=== PATIENT | female | born 1975 ===

== ENCOUNTER 2024-07-07 09:03 | Inpatient (IN) | payer OTHER ==
[2024-07-07] VITALS (42 sets, daily range): BP systolic 84–134; BP diastolic 61–88
[~2024-07-07] VITALS: Ht 162.6 cm; Wt 64.5 kg
[~2024-07-07 09:03] MED LIST: ARMOUR THYROID90 M1 PO; CeFAZolin Sodium 2,000 MG in NS 100 ML IV SCH; Lactated Ringer's 1,000 ML IV SCH
--- NOTE | 2024-07-07 09:42 | NUR ---
Ambulatory in Day Surgery History, Chart, Medications and Allergies reviewed before start of procedure. Pre-Op teaching done. Pt verbalizes understanding. Patient States Post-Procedure ride home has been arranged.
[2024-07-07] MEDS ORDERED: Midazolam HCl 1MG / ML 2ML Vial ONE (09:53)
[2024-07-07] MEDS ORDERED: Midazolam HCl 1MG / ML 2ML Vial IV SCH (09:55)
[2024-07-07] MEDS ORDERED: Bupivacaine 0.5% HCl 5 MG/ML 30MLVIAL ONE (10:28)
[2024-07-07] MEDS ORDERED: Ondansetron HCl 2 MG / ML 2ML Vial ONE (11:48)
[2024-07-07] MEDS ORDERED: HYDROcodone 5-APAP 325 TAB PO PRN (12:05)
[2024-07-07] MEDS ORDERED: FLU VACC TS2024-25(6MOS UP)/PF 45 MCG/0.5 ML SYRINGE IM SCH (12:05)
[2024-07-07] MEDS ORDERED: DiphenhydrAMINE HCL 25 MG Cap PO PRN (12:05)
[2024-07-07] MEDS ORDERED: Acetaminophen 325 MG TABLET PO PRN (12:05)
[2024-07-07] MEDS ORDERED: Simethicone 80 MG Chew PO PRN (12:05)
[2024-07-07] MEDS ORDERED: Ondansetron HCl 2 MG / ML 2ML Vial IV PRN (12:10)
[2024-07-07] MEDS ORDERED: Ibuprofen 400 MG Tab PO PRN (12:10)
[2024-07-07] MEDS ORDERED: Lactated Ringer's 1,000 ML IV SCH (12:10)
[2024-07-07] MEDS ORDERED: OxyCODONE HCL 5 MG TAB PO PRN (12:10)
[2024-07-07] MEDS ORDERED: fentaNYL citrate 20 MCG/ML 30MLSYR IV PRN (12:15)
[2024-07-07] MEDS ORDERED: HYDROmorphone HCl/Pf 1MG SYR ONE (12:18)
[2024-07-07] MEDS ORDERED: NS 250 ML IV PRN (14:20)
[2024-07-07] MEDS ORDERED: FentaNYL Citrate 50 MCG/ML 2 ML Injection IV PRN ×2 (14:50→15:00)
[2024-07-07] MEDS ORDERED: Ketorolac Tromethamine 30mg Vial IV SCH (18:00)
[2024-07-07] MEDS ORDERED: Carvedilol 3.125 MG Tab PO SCH (18:00)
--- NOTE | 2024-07-07 19:18 | NUR ---
SHIFT SUMMARY A&O X4, ABLE TO MAKE NEEDS KNOWN, OBEYS COMMANDS, ABLE TO MOVE ALL EXTREMITIES EQUALLY. CONTINUOUS SPO2, SPO2 GREATER THAN 90% ON 2L O2 VIA NC/ ATTEMPTED RA WITH PT AND THEY DESATURATED TO LOW 80 S%, PT TAKING SHALLOW BREATHS, LUNGS SOUND CLEAR T/O;EDUCATED PT ON THE USE OF INCENTIVE SPIR. SINUS RHYTHUM, HR 60-70 S, DENIES CHEST P/P AT THIS TIME, B/P SOFT/MD AWARE/MAP GREATER THAN 65. POST PROCEDURAL REYES CATH, URINE YELLOW IN COLOR. HYPOACTIVE BOWEL TONES, ABD SOFT/TENDER TO PALPATION. ABD BANDAGE HAS SMALL DOTS OF BLOOD THAT REMAINS UNCHANGED FROM TRANSFER TO PCU. PT BECAME NAUSEAS AND VOMITED DURING DINNER ALSO BECOME LIGHTHEADED, SWEATY AND FEELING HOT/ TEMP NORMAL, MEDICATED PER ORDERS, CBG CHECKED. DR. FINNEY TO BEDSIDE PLAN OF CARE UPDATED AND FAMILY EDUCATED. ECHO COMPLETED THIS SHIFT
[2024-07-08] VITALS (55 sets, daily range): BP systolic 82–109; BP diastolic 54–76
[2024-07-08 05:54] LABS: BASOPHILS ABSOLUTE AUTO 0.02 K/mm3 (0.00-0.23); BASOPHILS PERCENT AUTO 0 % (0-2); EOSINOPHILS ABSOLUTE AUTO 0.01 K/mm3 (0.00-0.68); EOSINOPHILS PERCENT AUTO 0 % (0-6); Hematocrit 29.9 % (33.0-51.0); Hemoglobin 10.2 g/dL (11.5-16.0); IMMATURE GRAN ABSOLUTE AUTO 0.06 K/mm3 (0.00-0.10); IMMATURE GRAN PERCENT AUTO 1 % (0-1); LYMPHOCYTES ABSOLUTE AUTO 1.01 K/mm3 (0.84-5.20); LYMPHOCYTES PERCENT AUTO 10 % (21-46); MONOCYTES ABSOLUTE AUTO 0.71 K/mm3 (0.16-1.47); MONOCYTES PERCENT AUTO 7 % (4-13); Mean Corpuscular HGB 32.1 pg (26.0-34.0); Mean Corpuscular HGB Conc 34.1 g/dL (31.5-36.5); Mean Corpuscular Volume 94 fL (80-100); Mean Platelet Volume 10.7 fL (9.1-12.4); NEUTROPHILS ABSOLUTE AUTO 8.34 K/mm3 (1.96-9.15); NEUTROPHILS PERCENT AUTO 82 % (41-73); Platelet Count 191 K/mm3 (150-400); RDW Standard Deviation 41.6 fL (35.1-46.3); Red Blood Cell Count 3.18 M/mm3 (3.80-5.20); White Blood Cell Count 10.15 K/mm3 (4.00-11.30)
[2024-07-08 06:16] LABS: Bun/Creatinine Ratio 15.4 (12.0-20.0); Calcium, Blood 8.3 mg/dL (8.5-10.1); Creatinine, Blood 0.65 mg/dL (0.40-1.00)
--- NOTE | 2024-07-08 06:19 | NUR ---
SHIFT SUMMARY PATIENT ALERT AND ORINETED X4. PATIENT HAS BEEN HAVING BOUTS OF NAUSEA AND VOMITING IN CONJUNCTION WITH INCREASED PAIN, MEDICATED NEEDED PER EMAR. PATIENT ENCOURAGED TO COMPLETE DEEP BREATHING EXERCISES. BLOOD PRESSURE HYPOTENSIVE, MAP >65. PATIENT IS CURRENTLY SINUS TEDDY IN THE 40'S-50'S. WILL CONTINUE TO MONITOR. CALL LIGHT WITHIN REACH.
[2024-07-08] MEDS ORDERED: Magnesium Hydroxide Conc 10 ML UDC PO PRN (08:35)
[2024-07-08] MEDS ORDERED: Heparin Sodium 5000 Units/ML 1ML MDV SC SCH (09:00)
[2024-07-08] MEDS ORDERED: Docusate Sodium 100 MG Cap PO SCH (09:00)
[2024-07-08] MEDS ORDERED: Sennosides 8.6 MG Tab PO SCH (09:00)
[2024-07-08] MEDS ORDERED: NS 1,000 ML IV ONE (12:32)
--- NOTE | 2024-07-08 12:50 | NUR ---
Rapid This RN to room with Dr Holt, pt up in chair for approx 20 minutes, pt stating she needs to have a BM. CONSUMER RELATIONS SPECIALIST at bedside to assist with transfer to [facility]. Pt states that she is starting to feel lightheaded, stating "Im going out", and "I need the emesis bag." Bp 89/64 heart 50's; pt had an episode of emesis and julia down to 37, lost consciousness and stopped responding to staff for approx 30-40 seconds, pt continued to have emesis. Rapid called. BP 82/60 heart rate returned to 40-50's, pt regained consciousness. Dr Jackman at bedside. Zofran given. Started NS 500cc bolus. Pt reporting something stuck in throat, encouraged to cough, splinted with pillow. Pt given water and encouraged to continue coughing. Pt assisted back to bed. Continued maintenace fluids after bolus. Pt alert, oriented, stating she is feeling better, plans to keep on bedrest at this time. Notified Dr Mistry. Dr Holt cleared from surgical standpoint and removed top bandage leaving steri strips in place and open to air.
--- NOTE | 2024-07-08 13:01 | NUR ---
"Spiritual Care | Rapid Response Met with Pts. father and her surgeon in the hallway while the rapid crew was attending to the Pt. After the Pt. was stablized, I gently introduced myself to the Pt. Given the overwhelming nature of the rapid response I prayed for the Pt. by being quick and brief. Pt. verbalized gratitude for the spiritual care visit and welcomed this document processing specialist to return."
[2024-07-08] MEDS ORDERED: NS 500 ML IV ONE (13:10)
[2024-07-08 13:13] LABS: Hematocrit 30.9 % (33.0-51.0); Hemoglobin 10.3 g/dL (11.5-16.0); Mean Corpuscular HGB 32.1 pg (26.0-34.0); Mean Corpuscular HGB Conc 33.3 g/dL (31.5-36.5); Mean Corpuscular Volume 96 fL (80-100); Mean Platelet Volume 10.4 fL (9.1-12.4); Platelet Count 174 K/mm3 (150-400); RDW Coefficient Variation 12.1 % (11.7-14.2); RDW Standard Deviation 42.5 fL (35.1-46.3); Red Blood Cell Count 3.21 M/mm3 (3.80-5.20); White Blood Cell Count 8.25 K/mm3 (4.00-11.30)
[2024-07-08] MEDS ORDERED: Metoclopramide HCl 5MG / ML 2ML Vial IV PRN (14:15)
--- NOTE | 2024-07-08 18:28 | NUR ---
SHIFT SUMMARY A&O X4, ABLE TO MAKE NEEDS KNOWN, OBEYS COMMANDS, ABLE TO MOVE ALL EXTREMITIES EQUALLY. CONTINUOUS SPO2, SPO2 GREATER THAN 90% ON 2L O2 VIA NC/ ATTEMPTED RA WITH PT AND THEY DESATURATED TO LOW 80 S%, PT TAKING SHALLOW BREATHS, LUNGS SOUND CLEAR T/O;EDUCATED PT ON THE USE OF INCENTIVE SPIR. SINUS RHYTHUM, HR 60-70 S, DENIES CHEST P/P AT THIS TIME, B/P SOFT/MD AWARE/MAP GREATER THAN 65. POST PROCEDURAL REYES CATH, URINE YELLOW IN COLOR. HYPERACTIVE BOWEL TONES, ABD SOFT/TENDER TO PALPATION. PT HAVING PERSISTANT NAUSEA WITH SHORT RELIEF AFTER BEING MEDICATED PER ORDERS. DR. FINNEY TO BEDSIDE THIS AM, PLAN OF CARE CONTINUES DR. VALENZUELA TO BEDSIDE THIS AM, NEW ORDER FOR BOWEL CARE. PT UP TO RECLINER THIS AFTERNOON, SHORTLY AFTER PT HAD EPISODE OF BRADICARDIC EPISODE WITH SYNCOPAL EPISODE, RESULTING IN AN BOW MAKER MACHINE TENDER. DR. NOVOA AT BEDSIDE DURING BOW MAKER MACHINE TENDER, REMOVED TOP BANADGE/ LEAVE STERI STRIPS IN PLACE AND OPEN TO AIR, CLEARED FROM SURGICAL STAND POINT PER DR. NOVOA. CALLED DR. VALENZUELA THIS AFTERNOON FOR PT RECURRENT NAUSEA , NEW ORDERS PLACED.
[2024-07-09 04:00] VITALS: BP 116/75
--- NOTE | 2024-07-09 06:17 | NUR ---
SHIFT SUMMARY PATIENT ALERT AND ORIENTED X4. MEDICATED PER EMAR FOR PAIN. SHE HAD NO COMPLAINTS OF NAUSEA OVERNIGHT, REPORTED FEELING BETTER OVERALL. VITAL SIGNS STABLE, SINUS RHYTHM ON TELE WITH IMPROVEMENTS IN BLOOD PRESSURE. ON ROOM AIR WITH SPO2 >90%. WILL CONTINUE TO MONITOR. CALL LIGHT WITHIN REACH.
[2024-07-09] MEDS ORDERED: Cosyntropin 0.25 MG / ML 1ML Vial IV ONE (08:45)
[2024-07-09] MEDS ORDERED: Thyroid 60 MG Tab PO SCH (09:00)
[2024-07-09] MEDS ORDERED: IBU600 M1 PO (13:38)
[2024-07-09] MEDS ORDERED: Norco 5-325 Ta1 EACH PO (13:38)
[2024-07-09] MEDS ORDERED: Colace100 MG PO (13:38)
[2024-07-09] MEDS ORDERED: SENNA LAXATIVE8.6 MG PO (13:39)
[2024-07-09] MEDS ORDERED: SIME80CH PO (13:39)
[2024-07-09] MEDS ORDERED: ONDA4ODT MM (13:40)
--- NOTE | 2024-07-09 14:36 | NUR ---
PT HAS TOLERATED ORTHO VITALS WELL. CATHETER REMOVED PT UP TO BATHROOM WITH SLOW STEADY GAIT TO BATHROOM, SHE WAS ABLE TO URINATE WITHOUT DIFFICULTY. ABD BINDER WAS PLACED FOR COMFORT WHICH ALSO HELPS PT WITH CONFIDENCE WITH MOVING AROUND IN BED AND AMBULATION. VSS. NADN. REPORTS PAIN 2/10 THAT WAS TREATED WITH TYLENOL AND GAS X. INCISION INTACT, APPROXIMATED WELL, NO DRAINAGE
[2024-07-11 16:41] LABS: ADRENOCORTICOTROPIC HORMONE 11.5 pg/mL (7.2-63.3)
== END 2024-07-09 15:35 | disposition home or self-care (01) | DRG 742 ==
LOC: PRE IP 09:03 → PCU 09:03 → SURS 09:03 → PRE IP 10:00 → PCU 10:01 → SURS 13:04 → PCU 13:04
PROVIDERS: Internal Medicine; ADMIT Obstetrics & Gynecology
PROC: 0UB70ZZ Excision of Bilateral Fallopian Tubes, Open Approach (ICD-10-PCS; 2024-07-07)
PROC: 5A12012 Performance of Cardiac Output, Single, Manual (ICD-10-PCS; 2024-07-07)
PROC: 0UT90ZL Resection of Uterus, Supracervical, Open Approach (ICD-10-PCS; principal; 2024-07-07 10:00)
DX: D25.9 Leiomyoma of uterus, unspecified (principal); I51.81 Takotsubo syndrome; N92.0 Excessive and frequent menstruation with regular cycle; E03.9 Hypothyroidism, unspecified; R00.1 Bradycardia, unspecified; Z79.890 Hormone replacement therapy
CPT/HCPCS: 36415; 71045; 80048; 80400; 82024; 82533; 82947; 84443; 84484; 85025; 85027; 86850; 86900; 86901; 88307; 93005; 93010; 93306; 94762; 96361; 96372; 96374; 96375; 96376; A9270; G0378; J0690; J0834; J1171; J1644; J1885; J2250; J2405; J2765; J7030; J7040; J7120